=== PATIENT | male | born 1965 | race Caucasian/White ===

== ENCOUNTER 2019-09-03 03:45 | Emergency (ER) | payer OTHER ==
[~2019-09-03] VITALS: Ht 185.4 cm; Wt 122.5 kg
[2019-09-03] MEDS ORDERED: CYCLOBENZAPRINE10 MG PO (05:21)
[2019-09-03] MEDS ORDERED: IBU800 MG PO (05:21)
[2019-09-03] MEDS ORDERED: TRAMADOL HCL50 MG PO (05:23)
== END 2019-09-03 05:39 | disposition home or self-care (01) ==
LOC: ED 03:45
DX: S39.012A Strain of muscle, fascia and tendon of lower back, initial encounter (principal); Z88.8 Allergy status to other drugs, medicaments and biological substances; Z91.040 Latex allergy status; X50.0XXA Overexertion from strenuous movement or load, initial encounter; Y93.89 Activity, other specified; Y92.89 Other specified places as the place of occurrence of the external cause; Y99.8 Other external cause status

== ENCOUNTER 2021-09-17 16:30 | Emergency (ER) | payer OTHER ==
[~2021-09-17] VITALS: Wt 2.7 kg
[~2021-09-17 16:30] MED LIST: CYCLOBENZAPRINE10 MG PO; IBU800 MG PO; TRAMADOL HCL50 MG PO
== END 2021-09-17 18:22 | disposition left against medical advice (07) ==
LOC: ED 16:30
DX: M25.571 Pain in right ankle and joints of right foot (principal); Z53.21 Procedure and treatment not carried out due to patient leaving prior to being seen by health care provider